=== PATIENT | female | born 1950 | race Caucasian/White ===

== ENCOUNTER 2019-12-13 03:45 | Inpatient (IN) | payer MEDICARE, SELFPAY ==
[2019-12-13] VITALS (11 sets, daily range): BP systolic 129–159; BP diastolic 64–95; PULSE 64–111; RESP 12–22; TEMP 36.2–36.8; O2SAT 98–100; BMI 36.1
--- NOTE | ~2019-12-13 | CT_ITS ---
EXAMINATION: CT brain wo con DATE: 12/13/2019 04:04 INDICATION: Seizure. Confusion. TECHNIQUE: Computed tomography (CT) of the head was performed without intravenous contrast. The mA wa s adjusted according to patient size. Iterative reconstruction technique was employed. The dose-lengt h product was 605.33 mGy-cm. COMPARISON: Head CT 10/02/2013 FINDINGS: There is diffuse brain volume loss. There are scattered areas of low attenuation in the cer ebral white matter. There is no intracranial hemorrhage, acute infarction, or abnormal intracranial m ass lesion. The ventricles are normal in size. There is mild mucosal thickening in the ethmoid sinuse s. There is a trace left mastoid effusion. IMPRESSION: 1. Worsened mild nonspecific cerebral white matter disease, which likely represents chronic small ves oluis ischemic disease. Reviewed, dictated and finalized at location A. IMPRESSION: 1. Worsened mild nonspecific cerebral white matter disease, which likely repres ents chronic small vessel ischemic disease.
--- NOTE | ~2019-12-13 | MR_ITS ---
EXAMINATION: MR brain/brain stem wo/w con DATE: 12/13/2019 11:55 INDICATION: Seizure. TECHNIQUE: Magnetic resonance imaging (MRI) of the brain and brainstem was performed without and with 16 mL MultiHance intravenous contrast. Sequences included sagittal and axial T1-weighted FSE, axial diffusion-weighted FS EPI, axial T2*-weighted GRE, axial T2-weighted FLAIR Propeller, and axial T2-we ighted Propeller. Postcontrast sequences included axial and coronal T1-weighted FSE. Apparent diffusi on coefficient (ADC) maps were created. COMPARISON: Head CT 12/13/2019 FINDINGS: There is diffuse brain volume loss. There is an empty sella. There are scattered areas of n onspecific increased T2-weighted signal intensity in the cerebral white matter. There is no intracran ial hemorrhage, acute infarction, or abnormal intracranial mass lesion. The ventricles are normal in size. There is a small left mastoid effusion. The orbits are normal. There is mild mucosal thickening in the paranasal sinuses. IMPRESSION: 1. Mild nonspecific cerebral white matter disease, which likely represents chronic small vessel ische josh disease. Reviewed, dictated and finalized at location A. IMPRESSION: 1. 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
--- NOTE | ~2019-12-13 | XR_ITS ---
EXAMINATION: XR chest 2V DATE: 12/13/2019 04:12 INDICATION: Seizure. TECHNIQUE: Frontal and lateral views of the chest were obtained. COMPARISON: Chest single view 10/02/2013 FINDINGS: Calcified pulmonary nodules and calcified hilar lymph nodes are consistent with old granulo matous disease. No pleural effusion or pneumothorax. The heart size is normal. There is mild chronic anterior wedging of a midthoracic vertebral body. IMPRESSION: 1. No acute cardiopulmonary disease. Reviewed, dictated and finalized at location A.
--- NOTE | 2019-12-13 03:44 | ECG_ITS ---
Measurements Intervals [place] Rate: 67 P: 37 DC: 207 QRS: 0 QRSD: 88 T: 3 QT: 433 QTc: 458 Interpretive Statements SINUS RHYTHM ATRIAL PREMATURE COMPLEX CANNOT RULE OUT SEPTAL INFARCT, AGE INDETERMINATE BASELINE ARTIFACT- I, II, III, AVR, AVL, AVF, V1-V3 ABNORMAL ECG Electronically Signed On 12-13-2019 10:05:49 CDT by Ben Caro D.O.
--- NOTE | 2019-12-13 03:44 | ED.GENADULT ---
HPI - General Adult General Chief complaint: Altered Mental Status Stated complaint: seizure? Source: EMS Mode of arrival: EMS Limitations: altered mental status History of Present Illness HPI narrative: Patient is a 69-year-old female who presents for evaluation of altered mental status. Per EMS report, states that he heard the patient yell out from the bathroom, and then he found the patient shaking on the floor, biting her tongue. No bowel or bladder incontinence. EMS was called. Patient was intermittently awake and alert en route, pt was unable to follow commands. Glucose 134. No focal deficits on assessment. Patient had nonsensical speech for EMS. Per , patient has no history of seizure. No recent medication changes. No recent infections. Patient and had normal day yesterday, patient had not been complaining of anything. Per chart review, pt had episode of unresponsiveness in 2013 while shopping and was seen in the ED with negative work up, returned to baseline, and then left AMA. Related Data Home Medications Medication Instructions Recorded Confirmed amlodipine 12/13/19 atorvastatin 12/13/19 furosemide 12/13/19 hydroxyzine HCl 12/13/19 isosorbide mononitrate mg PO 12/13/19 losartan 12/13/19 metoprolol tartrate 12/13/19 omeprazole 12/13/19 oxycodone-acetaminophen 12/13/19 potassium chloride meq PO 12/13/19 Allergies Allergy/AdvReac Type Severity Reaction Status Date / Time clindamycin Allergy Intermediate Verified 08/28/16 14:45 No Known Allergies Allergy Unverified 10/02/13 12:06 Review of Systems Review of Systems: ROS unobtainable: Yes unobtainable due to mental status PMFSH Past Medical History Medical History (Updated 12/13/19 @ 05:32 by Lashanda Moore MD) Arthritis Hyperlipidemia Hypertension Myocardial infarction Surgical History Surgical History (Updated 12/13/19 @ 05:32 by Lashanda Moore MD) H/O section Hx of total knee arthroplasty Family History Family History (Updated 03/31/14 @ 07:13 by DOCTOR UNKNOWN) Father Hypertension Mother Family history of heart disease in male family member before age 55 Social History Social History Second hand tobacco smoke exposure: No Alcohol intake: never Exam Narrative: Exam Narrative: GENERAL: Intermittently awake, unable to follow commands HEAD: Normocephalic, atraumatic. No hematomas. EYES: 2+ PERRLA and EOMI. ENT: Nares clear, no rhinorrhea or epistaxis. Mucous membranes dry. Anterior tongue abrasion, no tongue laceration. NECK: Supple. No cervical midline tenderness. CHEST: No respiratory distress, breathing even and non labored, chest wall stable HEART: Regular rate, sinus rhythm ABDOMEN:Non distended, non tender EXTREMITIES: No deformity or evidence of injury. No edema. SKIN: Warm, dry, no rash. NEURO: Intermittently alert. Nonsensical speech. Unable to follow commands. No gross focal neurological deficits. No facial droop. Unable to assess [id number] or [id number] testing. Course Vital Signs Vital signs: Vital Signs Temperature 36.2 C L 12/13/19 03:44 Pulse Rate 69 12/13/19 03:44 Respiratory Rate 22 H 12/13/19 03:44 Blood Pressure 129/95 H 12/13/19 03:44 Pulse Oximetry 98 12/13/19 03:44 Temperature 36.2 C L 12/13/19 03:44 Pulse Rate 67 12/13/19 04:42 Respiratory Rate 18 12/13/19 04:42 Blood Pressure 151/64 H 12/13/19 04:42 Pulse Oximetry 100 12/13/19 04:42 Medical Decision Making MDM Narrative Medical decision making narrative: Patient presented for evaluation of possible seizure-like activity. At the time of initial assessment, ABCs are intact and vital signs are stable. Physical exam notable for an acutely altered patient who is currently protecting her airway, but is making nonsensical speech. Otherwise, no unilateral facial palsy, hemineglect, pa
[2019-12-13 04:28] LABS: Glucose Point of Care 125 (65-105)
[2019-12-13 04:29] LABS: Basophils Percent Auto 0.3 % (0.2-1.2); Eosinophils Absolute Auto 0.1 K/mm3 (0-0.3); Eosinophils Percent Auto 1.3 % (0-4.4); Hematocrit 35.6 % (37.0-47.0); Hemoglobin 12.3 g/dL (12.0-15.0); Immature Granulocyte Absolute 0.02 K/mm3 (0.00-0.031); Immature Granulocyte Percent A 0.5 % (0-0.5); Lymphocytes Absolute Auto 1.14 K/mm3 (0.9-3.2); Lymphocytes Percent Auto 29.5 % (18.3-44.2); Mean Corpuscular HGB Conc 34.6 g/dl (32-36); Mean Corpuscular Hemoglobin 31.9 pg (26-34); Mean Corpuscular Volume 92.5 fl (80-100); Mean Platelet Volume 9.9 fl (7.4-10.4); Monocytes Absolute Auto 0.3 K/mm3 (0.1-0.6); Monocytes Percent Auto 6.7 % (2.6-8.5); Neutrophils Absolute Auto 2.4 K/mm3 (1.3-6.7); Neutrophils Percent Auto 61.7 % (45.5-73.1); Platelet Count Result 159 k/mm3 (150-375); Red Blood Count 3.85 M/mm3 (4.2-5.4); Red Cell Distribution Width 12.8 % (11.5-14.5); White Blood Count 3.9 K/mm3 (4.5-10.0)
--- NOTE | 2019-12-13 04:32 | PC.NURSE ---
PT NOW AWAKE AND DISORIENTED AT THIS TIME. DOES NOT REMEMBER WHAT HAPPENED, WHY OR HOW SHE GOT HER. PT A&OX1 AT THIS TIME.
[2019-12-13 04:37] LABS: Add Urine Microscopic? YES; Appearance Urine Clear (Clear); Bilirubin Urine Negative (Negative); Blood Urine Negative (Negative); Color Urine Straw (Yellow); Glucose Urine UA Negative (Negative); Ketones Urine Negative (Negative); Leukocyte Esterase Ur Negative LEU/UL (Negative); Mucus Urine Rare /lpf; Nitrate Urine Negative (Negative); Protein Urine 1+ mg/dL (Negative); Specific Grav Ur 1.012 (1.001-1.035); Urobilinogen Urine Negative mg/dL (<2.0); WBC Urine 0-3 /hpf
[2019-12-13 04:38] LABS: Prothrombin Time 13.1 Seconds (11.1-14.7)
[2019-12-13 04:39] LABS: Partial Thromboplastin Time 29.1 SECONDS (22.3-36.8)
[2019-12-13 04:41] LABS: Alanine Aminotransferase 13 U/L (4-35); Albumin Level 4.4 g/dL (3.5-5.1); Alkaline Phosphatase 130 U/L (38-126); Aspartate Amino Transferase 29 U/L (14-36); Bilirubin,Total 0.6 mg/dL (0.2-1.3); Blood Urea Nitrogen 10 mg/dL (7-17); Carbon Dioxide 26 mmol/L (22-30); Chloride 95 mmol/L (98-107); Estimated Glomerular Filt Rate > 60; Glucose 126 mg/dL (65-105); Potassium 3.4 mmol/L (3.4-5.0); Sodium 130 mmol/L (137-145)
[2019-12-13] MEDS: SODIUM CHLORIDE 0.9% IV 1,000 ML 999 ML IV CONT (04:43)
[2019-12-13 04:52] LABS: Troponin I < 0.012 ng/mL (0.000-0.034)
[2019-12-13 05:01] LABS: Amphetamine Screen Urine Negative (Negative); Barbiturate Screen Urine Negative (Negative); Benzodiazepines Screen Urine Negative (Negative); Cannabinoid Screen Urine Negative (Negative); Cocaine Screen Urine Negative (Negative); Methadone Screen Urine Negative (Negative); Opiate Screen Urine Negative (Negative); Phencyclidine Screen Urine Negative (Negative)
[2019-12-13] MEDS: ACETAMINOPHEN 500 MG TABLET 1000 MG PO (05:34)
--- NOTE | 2019-12-13 07:30 | ADMGEN ---
This patient, Alida Moran, was admitted to 2 Medical Room 256-. Patient/family oriented to hospital policies and general routines including ID bracelet, bed and alarms, visiting hours, pain management, procedures, bathroom and other care routines, personal items, smoking policy, room service/diet, and visiting hours. Valuables list has been completed. Information on how to activate the Rapid Response Team has been discussed. Patient/Family are encouraged to report perceived risks to care and to ask questions if they do not understand what they are told or what they should do.
[2019-12-13 08:45] LABS: Troponin I < 0.012 ng/mL (0.000-0.034)
[2019-12-13] MEDS: ACETAMINOPHEN 325 MG TABLET 650 MG PO ×2 (12:54→16:51)
--- NOTE | 2019-12-13 13:58 | PM.IMHP ---
H&P: HPI History of Present Illness Chief complaint: Transient altered mental status Narrative: Alida Moran is a 69 year old female with history of arthritis, HLD, HTN, MO and past ER visit in 2013 for AMS/episode of unresponsiveness and left AMA who presented to the ER in early hours of 12/12 with reports of AMS. History was obtained via EMR and patient; was contacted, without an answer - left a VM. Patient is now A&Ox4, however is unable to tell me much about why she was brought into the hospital. She tells me the first thing she remembers is being confused in the ER. According to her, she was found by her on the floor of the bathroom, possibly the shower, shaking and with foam at the mouth and chomping her teeth. She states she regained consciousness in the ER and was slightly disoriented, but now is feeling back to her normal self. She tells me she denies any mouth trauma (although this was reported by in ER), nor any bladder/bowel incontinence, any other injuries; this was also documented in ER note. Per ER note, patient was heard by the , Conrado, yelling out from the bathroom, at which point, he found her shaking on the floor, biting her tongue. EMS was summoned and patient intermittently awoke and alert en route, but unable to follow commands. Glucose was 134. She had no focal deficits on assessment by EMS, but was having nonsensical speech. Currently, patient only complains of right sided and mid-sternal chest pressure that is reproducible when she presses down on her chest. She has had no history of seizure or stroke. No recent changes in medications. She takes all of her medications as prescribed. No recent infection/illness. No illicit drug use. She does explain instances where she has what sounds like anxiety attacks, where she gets a wave of emotion that comes out of no where, making her have a crying episode, then resolves on its own after some time. She otherwise has no complaints and is wishing to go home if possible. She denies any confusion, f/c/s, myalgias/arthralgias, headaches, dizziness, lightheadedness, changes in v/h, sudden blindness, one sided arm/leg weakness, facial droop, slurred speech, palpitations, sob/cough, n/v/d/c, abd pain, changes in BMs, dysuria, hematuria, cloudy urine, calf pain/swelling. While in the ER, CT of the brain was showed no acute findings but did show worsened mild nonspecific cerebral white matter disease, likely representing chronic small vessel ischemic disease. Temp 36.2, RR 22, HR 69, BP 129/95, pulse ox 98% RA. CBC, chemistry, UA, toxicology screen and troponin provide little explanation for etiology of symptoms. Patient was admitted for seizure vs acute CVA work up; Dr. Bennett (Neurology) was consulted for further input. Brain MRI done this afternoon showed mild non-specific cerebral white matter disease; no acute intracranial process. Review of Systems Review of Systems: All systems reviewed & are unremarkable except as noted in HPI and below PMFSH Past Medical History Medical History Arthritis Fibromyalgia Hyperlipidemia Hypertension Myocardial infarction Surgical History Surgical History H/O section Hx of total knee arthroplasty Family History Family History Father Hypertension Brain aneurysm Skin cancer Mother Family history of heart disease in male family member before age 55 Social History Social History Social History: Patient lives at home with , Conrado, whom she designates her surrogate MDM. She wishes to be a full code does not wish to be on prolonged life support. She has dog at home as well. Her PCP is Dr. Suazo. Smoking status: Former smoker Tobacco type: cigarettes Second hand tobacco
[2019-12-13] MEDS: POTASSIUM CHLORIDE 20 MEQ TABLET.ER PO (14:34)
[2019-12-13] MEDS: ATORVASTATIN 40 MG TABLET PO (14:34)
[2019-12-13] MEDS: AMLODIPINE BESYLATE 5 MG TABLET PO (14:35)
[2019-12-13] MEDS: LOSARTAN POTASSIUM 100 MG TABLET PO (14:35)
[2019-12-13] MEDS: ISOSORBIDE MONONITRATE 30 MG TAB.ER.24H PO (16:51)
[2019-12-13] MEDS: METOPROLOL TARTRATE 50 MG TAB PO (20:15)
[2019-12-13] MEDS: LATANOPROST 0.005% OP SOLN 2.5 ML BTL 1 DROP EACH EYE (20:15)
--- NOTE | 2019-12-13 20:37 | CONS_ITS ---
DATE OF CONSULTATION: 12/13/[address] Rayray Diaz and Dr. Freddie Suazo. HISTORY OF PRESENT ILLNESS: A 69-year-old right-handed female has been admitted for change in the mental status of transient in nature. She presented to emergency room in early hours of 12/12 with report of changes in mental status when the history was obtained via the EMR record. was contacted without any answer, left the . The patient was awake, alert, oriented x4; however, she was unable to tell about why she was brought to the hospital. She first remembers that she was confused in the emergency room. She was found by her on the floor of the bathroom, possibly by the shower shaking with foam at the mouth with clamping her teeth. She regained her consciousness in the emergency room, though she was slightly disoriented and still was not feeling back to her normal. She had no incontinence of bowel or bladder. As per the ER note, the patient was heard by the , yelling out from the bathroom, at which point he found her shaking on the floor, biting her tongue. EMS were summoned to the scene. She was unable to follow the commands. Glucose of 134. She was not noted to have any focal deficit, but her speech was not clear. She was complaining of right-sided chest discomfort on initial evaluation by the hospital. She had no history of seizure or stroke-like activity in the past. She took all her medication as prescribed, but she also explained that at times she has instance off like anxiety attacks. She has ongoing history of: 1. Arthritis. 2. Hyperlipidemia. 3. Hypertension. 4. MD in the past. 5. Fibromyalgia. 6. and total knee arthroplasty. SOCIAL HISTORY: She is a former smoker, never drinker. MEDICATIONS: Include: 1. Meloxicam 15 mg daily. 2. Amlodipine 5 mg daily. 3. Atorvastatin 40 mg daily. 4. Furosemide 20 mg daily. 5. Hydroxyzine 10 mg h.s. 6. Isosorbide 30 mg twice a day. 7. Losartan 100 daily. 8. Metoprolol 50 twice a day. 9. Omeprazole 20 daily. 10. Oxycodone p.r.n. 11. Potassium chloride 20 mEq daily. ALLERGIES: SHE IS ALLERGIC TO CLINDAMYCIN. PHYSICAL EXAMINATION: VITAL SIGNS: Evaluation up until now documented her to be afebrile, pulse of 69, respirations 22, blood pressure 129/95, pulse ox 98%. GENERAL: Physical examination revealed her to be awake, alert, cooperative, in no obvious acute distress. HEENT: Head normocephalic with no cranial bruits. Ear, nose, throat examination normal. NECK: Supple with no cervical bruits. No thyromegaly. No lymphadenopathy. HEART: Regular with no murmur. LUNGS: Clear to auscultation. ABDOMEN: Soft with no organomegaly. NEUROLOGICAL: Awake, alert, oriented x3. Able to move all the extremities. Pupils round, regular. Perez of vision full. Extraocular movements full. Face symmetrical. Tongue midline. Motor examination revealed her to have no drift of one side or other side. Tone normal. Reflexes symmetrical. Plantars downgoing. There is no evidence of gross cerebellar deficit. DIAGNOSTIC STUDIES: EKG in sinus rhythm. Chest x-ray negative. She had a brain MRI, which is with nonspecific cerebral white matter disease, chronic small-vessel ischemic changes. Routine lab with mild leukopenia. Hematocrit 35.6. Basic metabolic panel mildly abnormal. Sodium 130, chloride 95, glucose 126. 1+ protein in the urine. Drug screen negative. IMPRESSION: Rule out the possibility of the unwitnessed seizure versus the transient ischemic attack. PLAN: Plan is to obtain the EEG and further recommendation accordingly. In the meantime, medication will be continued as such. ESPINOZA PRECIADO M.D.
[2019-12-14] VITALS (7 sets, daily range): BP systolic 141–163; BP diastolic 68–71; PULSE 56–84; RESP 12–16; TEMP 36.4; O2SAT 99–100
[2019-12-14 05:03] LABS: Hematocrit 35.2 % (37.0-47.0); Hemoglobin 11.9 g/dL (12.0-15.0); Mean Corpuscular HGB Conc 33.8 g/dl (32-36); Mean Corpuscular Hemoglobin 31.7 pg (26-34); Mean Corpuscular Volume 93.9 fl (80-100); Mean Platelet Volume 9.9 fl (7.4-10.4); Platelet Count Result 155 k/mm3 (150-375); Red Blood Count 3.75 M/mm3 (4.2-5.4); Red Cell Distribution Width 13.1 % (11.5-14.5)
[2019-12-14 05:29] LABS: Potassium 3.7 mmol/L (3.4-5.0)
[2019-12-14 05:30] LABS: Blood Urea Nitrogen 13 mg/dL (7-17); Calcium 8.9 mg/dL (8.4-10.2); Carbon Dioxide 28 mmol/L (22-30); Chloride 103 mmol/L (98-107); Estimated Glomerular Filt Rate > 60; Glucose 89 mg/dL (65-105); Magnesium 2.1 mg/dL (1.6-2.3); Sodium 137 mmol/L (137-145)
[2019-12-14] MEDS: ACETAMINOPHEN 325 MG TABLET 650 MG PO (07:40)
[2019-12-14] MEDS: FUROSEMIDE 20 MG TABLET PO (07:41)
[2019-12-14] MEDS: ISOSORBIDE MONONITRATE 30 MG TAB.ER.24H PO (07:41)
[2019-12-14] MEDS: ATORVASTATIN 40 MG TABLET PO (07:41)
[2019-12-14] MEDS: AMLODIPINE BESYLATE 5 MG TABLET PO (07:41)
[2019-12-14] MEDS: METOPROLOL TARTRATE 50 MG TAB PO (07:42)
[2019-12-14] MEDS: MELOXICAM 7.5 MG TABLET 15 MG PO (07:42)
[2019-12-14] MEDS: LOSARTAN POTASSIUM 100 MG TABLET PO (07:42)
[2019-12-14] MEDS: PANTOPRAZOLE 40 MG TABLET PO (07:43)
[2019-12-14] MEDS: POTASSIUM CHLORIDE 20 MEQ TABLET.ER PO (07:43)
--- NOTE | 2019-12-14 13:30 | NEURO_ITS ---
TEST: ELECTROENCEPHALOGRAM DIAGNOSIS: SEIZURES LIKE ACTIVITY PATIENT NUMBER: [id number] EEG NUMBER: [id number] RECORDING DATE: 12/14/19 CLINICAL HISTORY: Patient reports her found her on the floor very stiff and foaming at the mouth. CONDITION OF RECORDING: Awake, drowsy and sleep EEG DESCRIPTION: Basic resting occipital frequency consists of moderate amount of poorly organized low to medium voltage 8-9hz alpha mixed with intermittent low to medium voltage5-7hz theta activity. During drowsiness low voltage beta activity is seen diffusely mixed with waxing and waning posterior alpha rhythms. Bilateral symmetrical sleep activity is seen during sleep. Intermittent low to medium voltage 3-4hz delta activity is seen mixed with the wakefulness and drowsiness. Nonparoxysmal. Nonfocal. Nonlateralizing. IMPRESSION: Abnormal record due to bi-hemispheric theta and delta activity. The findings could be consistent with the post ictal state or organic or metabolic encephalopathy. There is no evidence of any paroxysmal discharge. Clinical correlation recommended. [facility]
--- NOTE | 2019-12-14 15:31 | PM.DS ---
DS: Diagnosis Admitting Diagnosis Admitting Diagnosis: Unspecified convulsions Discharge Diagnosis (1) Seizure-like activity: Code(s): R56.9 - Unspecified convulsions Status: Acute Assessment and Plan: Patient had reported seizure like activity although no mouth trauma on exam, bowel/bladder incontinence. She appears to be back to her baseline. Unclear if patient truly had post-ictal state. Neurology had been consulted; appreciate recommendations. Differential includes seizures vs psychogenic seizures vs less likely TIA. Brain MRI unremarkable. Telemetry unremarkable; sinus rhythm with likely PACs; asymptomatic. Seizure precautions Dr. Bennett evaluated the patient in said her EEG was normal. -->Upon review of the final EEG report that was transcribed on 12/15/2019 (Day after she was discharged) it shows that the EEG was abnormal record due to bi-hemispheric theta and delta activity. The findings could be consistent with the post ictal state or organic or metabolic encephalopathy. There is no evidence of any paroxysmal discharge. Clinical correlation recommended. The patient was otherwise feeling well and back to her baseline so she was discharged home without any seizure medications. (2) Altered mental status: Qualifiers: Altered mental status type: disorientation Qualified Code(s): R41.0 - Disorientation, unspecified Code(s): R41.82 - Altered mental status, unspecified Status: Acute Assessment and Plan: Patient apparently altered at home and upon arrival with resolution of symptoms today. (3) Hypertension: Code(s): I10 - Essential (primary) hypertension Status: Acute Assessment and Plan: BP 160s sys this morning prior to her medications being given. Resume home Lasix, Losartan, and metoprolol Will have her check her blood pressure at home and follow-up with her primary care provider. (4) Hyperlipidemia: Code(s): E78.5 - Hyperlipidemia, unspecified Status: Acute Assessment and Plan: Continue atorvastatin (5) Fibromyalgia: Code(s): M79.7 - Fibromyalgia Status: Acute Assessment and Plan: Patient states she has fibromyalgia which she attributes her b/l calf pain on exam to this diagnosis. [place] DVT less likely Patient takes meloxicam, continue (6) Arthritis: Code(s): M19.90 - Unspecified osteoarthritis, unspecified site Status: Acute Assessment and Plan: No acute issues Continue home meloxicam DS: Summary Hospital Course Reason for hospitalization: The patient is a 69 year old female with history of arthritis, HLD, HTN, DC, who presented to the ER in early hours of 12/12 with reports of AMS. The patients , Conrado, found the patient on the bathroom floor, and the patient was shaking and biting her tongue. EMS was summoned and patient intermittently awoke and alert en route, but unable to follow commands at the 1st thing the patient remembers is being confused in the ER. Initial vitals showed temperature of 97.2?, blood pressure 129/95, heart rate 69, respiratory rate 22, oxygen saturation 98% on room air. Initial labs showed slight neutropenia at 3900, otherwise normal differential. Normal coag panel. CMP showed hyponatremia at 130, serum glucose was 126. Negative troponin x2. Urinalysis was negative for any abnormality or UTI. Urine toxicology was negative. Chest x-ray No acute cardiopulmonary abnormality. CT head showed worsening mild nonspecific cerebral might matter disease and no acute abnormality. MRI brain showed mild nonspecific cerebral white matter disease, no acute or old CVAs. The patient was evaluated by our neurologist who planned to have an EEG ordered to rule
== END 2019-12-14 16:21 | disposition home or self-care (01) | DRG 101 ==
LOC: ANHED 05:08 → ANH2MED 06:54
PROVIDERS: Physician Assistant; Admitting Provider Family Medicine; Emergency Provider Emergency Medicine; PCP Family Medicine Adolescent Medicine; Visit Provider Family Medicine
DX: R56.9 Unspecified convulsions (principal); R41.0 Disorientation, unspecified; I10 Essential (primary) hypertension; R07.9 Chest pain, unspecified; E78.5 Hyperlipidemia, unspecified; M79.7 Fibromyalgia; M19.90 Unspecified osteoarthritis, unspecified site; Z96.659 Presence of unspecified artificial knee joint; I25.2 Old myocardial infarction; Z79.899 Other long term (current) drug therapy; Z87.891 Personal history of nicotine dependence
CPT/HCPCS: 36415; 70450; 70553; 71046; 80048; 80053; 80307; 81001; 82948; 83605; 83735; 84484; 85025; 85027; 85610; 85730; 93005; 95816; 96360; 99285; A9270; A9577; G0378; J7030

== ENCOUNTER 2020-08-07 08:31 | Outpatient (CLI) | payer MEDICARE, SELFPAY ==
--- NOTE | ~2020-08-07 | MR_ITS ---
EXAMINATION: MR brain/brain stem wo con DATE: 08/07/2020 10:47 INDICATION: Seizure. TECHNIQUE: Magnetic resonance imaging (MRI) of the brain and brainstem was performed without intraven ous contrast. Sequences included sagittal and axial T1-weighted FSE, axial diffusion-weighted FS EPI, axial T2*-weighted GRE, axial T2-weighted FLAIR Propeller, and axial T2-weighted Propeller. Apparent diffusion coefficient (ADC) maps were created. COMPARISON: Brain MRI 12/13/2019, head CT 12/13/2019, 10/02/2013 FINDINGS: There is diffuse brain volume loss with prominent cerebrospinal fluid superior to the brain , which is chronic. There is an empty sella. There are scattered areas of nonspecific increased T2-we ighted signal intensity in the cerebral white matter. There is no intracranial hemorrhage, acute infa rction, or abnormal intracranial mass lesion. The ventricles are normal in size. There is mild mucosa l thickening in the maxillary sinuses. The orbits are normal. There is a small left mastoid effusion. IMPRESSION: 1. Stable mild nonspecific cerebral white matter disease, which likely represents chronic small vesse l ischemic disease. Reviewed, dictated and finalized at location A. OGRAPHIC TECHNICIAN IMPRESSION: 1. Stable mild nonspecific cerebral white matter disease, which likely represen ts chronic small vessel ischemic disease.
--- NOTE | 2020-08-11 12:05 | WPDNEUROLOGY ---
Neurology EEG Report General Information Date of Study: 08/07/20 TEST eeg DIAGNOSIS Seizures CONDITION OF RECORDING awake drowsy and sleep EEG NUMBER 21-02 CLINICAL HISTORY patient reported she has been having episodes of aphasia and confusion. About 7 months ago had a similar episode losing consciousness and control of bowel and bladder. Her brought to the hospital at that time and had an abnormal EEG EEG DESCRIPTION basic resting occipital frequency consists of low to medium voltage 8 to 10 hertz per 2nd alpha admixed with 6 to 7 hertz per 2nd low to medium voltage theta activity and intermittent medium voltage 3 to 4 hertz per 2nd delta activity bilaterally. Symmetrical sleep activity seen during sleep bilaterally. Hyperventilation not done. Photic stimulation produced normal drive. Non paroxysmal. Nonfocal. Nonlateralizing. IMPRESSION Abnormal EEG because of the presence of excessive amount of theta and delta activity, though there is no evidence of any paroxysmal discharges throughout the tracing. Clinical correlation recommended as these abnormalities could be suggestive of underlying organic or metabolic encephalopathy. Possibility of focal structural lesion cannot be ruled out. Further evaluation suggested
== END 2020-08-07 08:32 | disposition home or self-care (01) ==
PROVIDERS: PCP Family Medicine; Visit Provider Psychiatry & Neurology Neurology
DX: R56.9 Unspecified convulsions (principal); R90.82 White matter disease, unspecified; R94.01 Abnormal electroencephalogram [EEG]
CPT/HCPCS: 70551; 95816

== ENCOUNTER 2020-08-08 09:28 | Outpatient (CLI) | payer MEDICARE, SELFPAY ==
--- NOTE | ~2020-08-08 | CT_ITS ---
EXAMINATION: CTA brain DATE: 08/08/2020 10:12 INDICATION: Seizure. TECHNIQUE: Computed tomographic angiography (CTA) of the head was performed without and with 100 mL O mnipaque-350 intravenous contrast. Automated exposure control and iterative reconstruction technique were employed. The dose-length product was 1017.21 mGy-cm. Maximum intensity projection and volume re ndered 3D-reconstructions were created by the technologist on a separate workstation. COMPARISON: Head CT 12/13/2019, brain MRI 08/07/2020 FINDINGS: There are scattered areas of low attenuation in the cerebral white matter. There is no int racranial hemorrhage, acute infarction, or abnormal intracranial mass lesion. The ventricles are norm al in size. The orbits are normal. There is mild mucosal thickening in the ethmoid sinuses. The masto id air cells are normal. Right vertebral artery is dominant. There is no significant stenosis of basi lar artery or the posterior cerebral arteries. There is no significant stenosis of the intracranial i nternal carotid arteries or anterior or middle cerebral arteries. Anterior communicating artery and t he posterior communicating arteries are normal. There is a 3 mm saccular aneurysm of right middle cer ebral artery directed inferiorly. IMPRESSION: 1. Mild nonspecific cerebral white matter disease, which likely represents chronic small vessel ische josh disease. 2. 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 Reviewed, dictated and finalized at location A. IAC MONITOR IMPRESSION: 1. Mild nonspecific cerebral white matter disease, which likely represents final assembler dariel small vessel ischemic disease. 2. 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
[2020-08-08 10:03] LABS: Estimated Glomerular Filt Rate 40
--- NOTE | 2020-08-08 11:32 | WPDNEUROLOGY ---
Neurology EEG Report General Information Date of Study: 08/07/20 TEST EEG DIAGNOSIS seizures CONDITION OF RECORDING awake drowsy and sleep EEG NUMBER 24/09 CLINICAL HISTORY Patient reported she has been having episodes of aphasia and confusion. About 7 months ago had a similar episode losing consciousness and control of bowel and bladder. Was brought to the hospital at that time and had an abnormal EEG EEG DESCRIPTION basic resting occipital frequency consists of low to medium voltage 8 to 10 hertz per 2nd alpha admixed with 6 to 7 hertz per 2nd low to medium voltage theta activity and intermittent medium voltage 3 to 4 hertz per 2nd delta activity bilaterally symmetrical sleep activity is seen during sleep hyperventilation not done. Photic stimulation produced normal drive. Non paroxysmal. Nonfocal. Nonlateralizing. IMPRESSION Abnormal EEG because of the presence of excessive amount of theta and delta activity, though there is no evidence of any paroxysmal discharge throughout the tracing. Clinical correlation recommended as these abnormalities could be suggestive of underlying organic a metabolic encephalopathy. Possibility of focal structural lesion cannot be ruled out. Further evaluation suggested
--- NOTE | 2020-08-10 09:45 | WPDNEUROLOGY ---
Neurology EEG Report General Information Date of Study: 08/07/20 TEST eeg DIAGNOSIS Seizures CONDITION OF RECORDING awake drowsy and sleep EEG NUMBER 21-02 CLINICAL HISTORY patient reported she has been having episodes of aphasia and confusion. About 7 months ago she had a similar episode losing consciousness and control of bowel and bladder. She was brought to the hospital at that time and had an abnormal EEG EEG DESCRIPTION basic resting occipital frequency consists of low to medium voltage 8 to 10 hertz per 2nd alpha admixed with 6 to 7 hertz per 2nd low to medium voltage theta activity and intermittent medium voltage 3 to 4 hertz per 2nd delta activity bilaterally. Bilateral symmetrical sleep activity is seen during sleep. Hyperventilation not done. Photic stimulation produced normal drive. Non paroxysmal. Nonfocal. Nonlateralizing. IMPRESSION Abnormal record because of the presence of excessive amount of theta and delta activity, though there is no evidence of any paroxysmal discharge throughout the tracing. Clinical correlation recommended. These abnormalities could be suggestive of underlying organic or metabolic encephalopathy. Possibility of focal structural lesion cannot be ruled out. Further evaluation suggested
== END 2020-08-08 09:29 | disposition home or self-care (01) ==
PROVIDERS: PCP Family Medicine; Visit Provider Psychiatry & Neurology Neurology
DX: R56.9 Unspecified convulsions (principal); I67.1 Cerebral aneurysm, nonruptured; R94.01 Abnormal electroencephalogram [EEG]; R90.82 White matter disease, unspecified
CPT/HCPCS: 70496; Q9967

== ENCOUNTER 2022-07-19 15:24 | Outpatient (CLI) | payer MEDICARE, SELFPAY ==
--- NOTE | ~2022-07-19 | XR_ITS ---
EXAMINATION: XR chest 2V DATE: 07/19/2022 15:50 INDICATION: Hemoptysis TECHNIQUE: PA and lateral views of the chest are obtained. COMPARISON: 12/13/2019 FINDINGS: There is a masslike opacity of the left lower lobe. No pleural effusion or pneumothorax. Th e cardiomediastinal silhouette is normal. There is moderate thoracic spondylosis. IMPRESSION: 1. Masslike opacity of the left lower lobe which could reflect pneumonia however malignancy could hav e a similar appearance. Given patient's history of tobacco use, further evaluation with CT of the [address] is recommended. Reviewed, dictated and finalized at location A. PANEL PADDER IMPRESSION: 1. Masslike opacity of the left lower lobe which could reflect pneumonia howeve r malignancy could have a similar appearance. Given patient's history of tobacc o use, further evaluation with CT of the chest is recommended.
== END 2022-07-19 15:25 | disposition home or self-care (01) ==
PROVIDERS: PCP Family Medicine; Visit Provider Physician Assistant
DX: R04.2 Hemoptysis (principal); R91.8 Other nonspecific abnormal finding of lung field
CPT/HCPCS: 71046

== ENCOUNTER 2022-07-25 09:50 | Outpatient (CLI) | payer MEDICARE, SELFPAY ==
--- NOTE | ~2022-07-25 | CT_ITS ---
Clinical Indication: Abnormal findings of lung, not otherwise specified CT Scan of the Chest with Contrast: Technique: Contiguous sections were acquired throughout the chest after intravenous administration of 75 cc of Omnipaque 350. Dose reduction technique was used on this scan by utilizing automated exposu re control and iterative reconstruction technique. The dose-length product (DLP) was 128.65 mGy-cm. Findings: There is no evidence of any significant mediastinal, hilar or axillary lymphadenopathy. There is no f illing defect in the pulmonary arterial tree to suggest pulmonary embolus. There is no evidence of ao rtic dissection or aneurysm. There is no evidence of pleural or pericardial effusion. There is an irregular area somewhat masslike consolidation in the left lower lobe measuring up to aissatou roximately 3.5 cm in diameter. Calcified right basilar granuloma noted. Images through the upper abdomen reveal no abnormalities. Impression: 3.5 cm area of irregular, somewhat masslike consolidation left lower lobe. Differential diagnosis inc ludes malignancy versus possibly pneumonia. Correlate clinically. Consider tissue sampling to establi sh histologic diagnosis, especially if the lesion has failed to improve with antibiotics. Reviewed, dictated and finalized at [facility]. AL BREEDER Impression: 3.5 cm area of irregular, somewhat masslike consolidation left lower lobe. Diff erential diagnosis includes malignancy versus possibly pneumonia. Correlate cli nically. Consider tissue sampling to establish histologic diagnosis, especially if the lesion has failed to improve with antibiotics.
[2022-07-25 11:25] LABS: Estimated Glomerular Filt Rate > 60
== END 2022-07-25 09:51 | disposition home or self-care (01) ==
PROVIDERS: PCP Family Medicine; Visit Provider Family Medicine
DX: R91.8 Other nonspecific abnormal finding of lung field (principal)
CPT/HCPCS: 71260; Q9967